=== PATIENT | female | born 1930 | race Caucasian/White ===

== ENCOUNTER → 2017-11-19 | Outpatient (CLI) | payer MEDICARE, BC ==
[~2017-11-19] MED LIST: ASPIR-LOW81 MG PO; ASPIRIN EC325 MG PO; CALCIUM 600 +1 EAC1 PO; CELEBREX200 MG PO; ENBREL50 MG/1 ML SC; EXCEDRIN EXTRA1 EACH PO; FOLIC ACID1 MG PO; IBUPROFEN600 MG PO; IRON325 MG PO; LOVASTATIN40 MG PO; METHOTREXATE PO; METOPROLOL SUCC50 MG PO; MIRALAX17 GM PO; OMEPRAZOLE20 M2 PO; PREDNISONE10 MG PO; SENNA-TIME S T1 EACH PO; TRAMADOL HCL50 MG PO
== END | disposition home or self-care (01) ==
LOC: CDC 12:18
DX: R94.31 Abnormal electrocardiogram [ECG] [EKG] (principal); M25.522 Pain in left elbow; M25.422 Effusion, left elbow; M25.552 Pain in left hip; M16.12 Unilateral primary osteoarthritis, left hip; S70.02XA Contusion of left hip, initial encounter; S42.472A Displaced transcondylar fracture of left humerus, initial encounter for closed fracture
CPT/HCPCS: 93000

== ENCOUNTER 2017-12-05 10:59 | Day surgery (SDC) | payer OTHER, BC ==
[~2017-12-05] VITALS: Ht 160 cm; Wt 59.8 kg
[~2017-12-05 10:59] MED LIST changes: +ASPIRIN81 M2 PO; +BUTRANS1 EACH TD; +CALCIUM 600 +1 EAC9 PO; +CELEXA10 MG PO; +MEVACOR40 MG PO; +PREDNISONE5 MG PO; +PRILOSEC20 MG PO; +SPIRIVA1 INHALATI IH; +TREXALL10 MG PO; +TYLENOL EXTRA500 MG PO; +VITAMIN B-650 M1 PO; +VITAMIN D31000 UNIT PO
[2017-12-05 11:24] VITALS: BP 141/63
[2017-12-05 11:52] LABS: HEMOGLOBIN 12.2 G/DL (11.9-15.5); MCH 31.9 PG (29.0-34.0); MCHC 31.3 G/DL (30.0-36.0); MCV 101.8 FL (83-99); PLATELET COUNT 221 K/uL (156-360); RBC DIS.WIDTH-CV 13.9 % (11.8-14.6); RBC DIS.WIDTH-SD 51.1 % (39-53); RED BLOOD COUNT 3.83 M/uL (3.80-5.20); WHITE BLOOD COUNT 9.5 K/uL (4.1-10.2)
[2017-12-05 17:41] VITALS: BP 138/75
[2017-12-05 18:29] VITALS: BP 140/61
== END 2017-12-05 18:50 | disposition home or self-care (01) ==
LOC: SDC 10:59
PROVIDERS: Anesthesiology
PROC: 0PSG04Z Reposition Left Humeral Shaft with Internal Fixation Device, Open Approach (ICD-10-PCS; principal; 2017-12-05)
DX: S42.422A Displaced comminuted supracondylar fracture without intercondylar fracture of left humerus, initial encounter for closed fracture (principal); W19.XXXA Unspecified fall, initial encounter; J44.9 Chronic obstructive pulmonary disease, unspecified; E78.00 Pure hypercholesterolemia, unspecified; R94.31 Abnormal electrocardiogram [ECG] [EKG]; M06.9 Rheumatoid arthritis, unspecified; Z86.718 Personal history of other venous thrombosis and embolism; I25.2 Old myocardial infarction; Z79.82 Long term (current) use of aspirin
CPT/HCPCS: 73060; 76000; 85027; C1713; J0690; J2795; J3010; S0020

== ENCOUNTER 2018-02-24 09:07 | Emergency (ER) | payer OTHER, BC ==
[~2018-02-24] VITALS: Ht 160 cm; Wt 57.3 kg
[2018-02-24 09:41] LABS: BASOPHIL (%) 0.4 % (0-1); EOSINOPHIL (%) 1.1 % (0-5); EOSINOPHIL COUNT 0.1 K/uL (0-0.3); HEMATOCRIT 32.1 % (36.0-46.0); HEMOGLOBIN 10.2 G/DL (11.9-15.5); IMMATURE GRANULOCYTE (%) 0.2 % (0.0-0.7); LYMPHOCYTE (%) 20.6 % (15-42); LYMPHOCYTE COUNT 0.9 K/uL (1.0-2.8); MCH 29.1 PG (29.0-34.0); MCHC 31.8 G/DL (30.0-36.0); MCV 91.7 FL (83-99); MONOCYTE (%) 11.2 % (3-12); MONOCYTE COUNT 0.5 K/uL (0-0.8); NEUTROPHIL (%) 66.5 % (45-76); PLATELET COUNT 160 K/uL (156-360); RBC DIS.WIDTH-CV 15.3 % (11.8-14.6); RBC DIS.WIDTH-SD 51.2 % (39-53); WHITE BLOOD COUNT 4.5 K/uL (4.1-10.2)
[2018-02-24 10:11] LABS: ALBUMIN 3.3 G/DL (3.2-4.8); CHLORIDE 107 MEQ/L (99-109); MAGNESIUM 1.7 mg/dl (1.3-2.7); POTASSIUM 3.7 MEQ/L (3.7-5.4); SODIUM 140 MEQ/L (136-147); TOTAL BILIRUBIN 0.6 MG/DL (0.0-1.0)
[2018-02-24 10:16] LABS: TROP-I INTERPRETATION NEGATIVE; TROPONIN-I < 0.01 ng/mL (0.0-0.30)
[2018-02-24 10:17] LABS: ALKALINE PHOSPHATASE 67 IU/L (3-129); ALT (GPT) 8 IU/L (3-49); AST (GOT) 20 IU/L (2-34); CREATININE 0.7 MG/DL (0.6-1.3); GFR ESTIMATE (CALCULATED) > 59 mL/min/; GLUCOSE 97 mg/dL (70-99); TOTAL PROTEIN 5.2 G/DL (6.4-8.3); UREA NITROGEN (BUN) 16 mg/dL (9-23)
[2018-02-24 10:48] LABS: APPEARANCE CLOUDY ((CLEAR)); BILIRUBIN NEGATIVE; BLOOD SMALL; COLOR YELLOW ((YELLOW)); GLUCOSE (STRIP) NEGATIVE; KETONES NEGATIVE; LEUKOCYTES LARGE; NITRITE POSITIVE; PROTEIN (STRIP) NEGATIVE; SPECIFIC GRAVITY 1.011 (1.000-1.030); UROBILINOGEN 0.2 MG/DL (0.2-1.0)
[2018-02-24 11:14] LABS: BACTERIA 3+ /HPF; EPITHELIAL CELLS 1+ /HPF; MUCUS NONE SEEN /LPF; RED BLOOD CELLS 0-5 /HPF (0-5); UCUL ADDED? YES; WHITE BLOOD CELLS TNTC /HPF (0-5)
[2018-02-24] MEDS ORDERED: KEFLEX500 MG PO (13:20)
[2018-02-24] MEDS ORDERED: ZOFRAN ODT4 MG PO (13:20)
[2018-02-24 14:20] VITALS: BP 140/62
== END 2018-02-24 14:23 | disposition home or self-care (01) ==
LOC: EME 09:07
PROVIDERS: Emergency Medicine
DX: N39.0 Urinary tract infection, site not specified (principal); R53.1 Weakness; I10 Essential (primary) hypertension; I25.2 Old myocardial infarction; J44.9 Chronic obstructive pulmonary disease, unspecified; F32.9 Major depressive disorder, single episode, unspecified; K21.9 Gastro-esophageal reflux disease without esophagitis; Z90.49 Acquired absence of other specified parts of digestive tract; Z79.82 Long term (current) use of aspirin
CPT/HCPCS: 80053; 81003; 83605; 83735; 84484; 85025; 87077; 87086; 87186; 93005; 99281; 99285; J7040

== ENCOUNTER 2018-04-22 16:09 | Emergency (ER) | payer OTHER, BC ==
[~2018-04-22] VITALS: Ht 160 cm; Wt 55.4 kg
[~2018-04-22 16:09] MED LIST changes: +KEFLEX500 MG PO; +ZOFRAN ODT4 MG PO
[2018-04-22 16:23] VITALS: BP 160/68
[2018-04-22 17:20] LABS: HEMATOCRIT 32.7 % (36.0-46.0); HEMOGLOBIN 10.7 G/DL (11.9-15.5); MCH 29.9 PG (29.0-34.0); MCHC 32.7 G/DL (30.0-36.0); MCV 91.3 FL (83-99); PLATELET COUNT 138 K/uL (156-360); RBC DIS.WIDTH-SD 56.6 % (39-53); RED BLOOD COUNT 3.58 M/uL (3.80-5.20); WHITE BLOOD COUNT 4.6 K/uL (4.1-10.2)
[2018-04-22 17:30] LABS: CHLORIDE 104 mEq/L (99-109); POTASSIUM 4.1 mEq/L (3.7-5.4); SODIUM 140 mEq/L (136-147)
[2018-04-22 17:32] LABS: GLUCOSE 90 mg/dL (70-99)
[2018-04-22 17:36] LABS: CREATININE 0.7 mg/dL (0.6-1.3); GFR ESTIMATE (CALCULATED) > 59 mL/min/; UREA NITROGEN (BUN) 19 mg/dL (9-23)
[2018-04-22 17:39] LABS: TROP-I INTERPRETATION NEGATIVE; TROPONIN-I < 0.01 ng/mL (0.0-0.30)
[2018-04-22 20:54] LABS: APPEARANCE SL.HAZY ((CLEAR)); BILIRUBIN NEGATIVE; BLOOD MODERATE; COLOR YELLOW ((YELLOW)); GLUCOSE (STRIP) NEGATIVE; KETONES 20; LEUKOCYTES MODERATE; NITRITE POSITIVE; PROTEIN (STRIP) NEGATIVE; SPECIFIC GRAVITY 1.015 (1.000-1.030); UROBILINOGEN 0.2 MG/DL (0.2-1.0)
[2018-04-22 21:11] LABS: BACTERIA 1+ /HPF; EPITHELIAL CELLS RARE /HPF; HYALINE CASTS 0-5 /LPF; MUCUS NONE SEEN /LPF; RED BLOOD CELLS 0-5 /HPF (0-5); UCUL ADDED? YES; WHITE BLOOD CELLS TNTC /HPF (0-5)
[2018-04-22] MEDS ORDERED: MACROBID100 MG PO (21:13)
== END 2018-04-22 21:14 | disposition home or self-care (01) ==
LOC: EME 16:09
PROVIDERS: Emergency Medicine
DX: N39.0 Urinary tract infection, site not specified (principal); B96.4 Proteus (mirabilis) (morganii) as the cause of diseases classified elsewhere; R11.0 Nausea; R94.31 Abnormal electrocardiogram [ECG] [EKG]; J44.9 Chronic obstructive pulmonary disease, unspecified; I10 Essential (primary) hypertension; I25.2 Old myocardial infarction; M19.90 Unspecified osteoarthritis, unspecified site; Z79.891 Long term (current) use of opiate analgesic; Z79.82 Long term (current) use of aspirin; Z79.52 Long term (current) use of systemic steroids; Z90.49 Acquired absence of other specified parts of digestive tract
CPT/HCPCS: 70450; 71045; 80048; 81003; 84484; 85027; 87077; 87086 GA; 87186; 93005; 99281; 99285; J2405; J7030